=== PATIENT | male | born 1975 | race Caucasian/White ===

== ENCOUNTER 2021-09-24 11:08 | Outpatient (REF) | payer MEDICARE, MEDICAID, SELFPAY ==
[2021-09-24 12:20] LABS: Hemoglobin 14.4 g/dl (14.0-18.0); Mean Corpuscular HGB Conc 32.7 g/dl (31.0-36.0); Mean Corpuscular Hemoglobin 29.6 pg (27.0-33.0); Mean Corpuscular Volume 90.5 fL (80.0-98.0); Mean Platelet Volume 10.3 fL (9.4-12.4); Platelet Count 313 X10*3/uL (160-400); Red Blood Count 4.86 X10*6/uL (4.60-5.80); Red Cell Distribution Width 12.5 % (11.0-16.0); White Blood Count 4.7 X10*3/uL (4.8-10.8)
[2021-09-24 12:57] LABS: Alanine Aminotransferase 20 U/L (0-40); Albumin Level 4.6 g/dL (3.5-5.0); Alkaline Phosphatase 55 U/L (39-117); Anion Gap 12 (12-20); Aspartate Amino Transferase 22 U/L (5-37); Bilirubin Direct < 0.2 mg/dL (0.0-0.5); Bilirubin Total 0.3 mg/dL (0.0-1.0); Blood Urea Nitrogen 11 mg/dL (9-16); Calcium 10.1 mg/dL (8.4-10.2); Carbon Dioxide 27 mmol/L (22-29); Chloride 104 mmol/L (96-108); Cholesterol 202 mg/dL; Estimated Glomerular Filt Rate > 60; Glucose Random 84 mg/dL (60-115); HDL Cholesterol 60 mg/dL; LDL Cholesterol Calculated 126 mg/dl; Potassium 4.4 mmol/L (3.3-5.1); Sodium 139 mmol/L (135-145); Total Protein 7.5 g/dL (6.5-8.0); Triglycerides 81 mg/dL
[2021-09-24 13:18] LABS: TSH reflex Free T4 2.88 uIU/mL (0.32-4.0)
[2021-09-24 13:50] LABS: Appearance Urine CLEAR; Color Urine YELLOW; Glucose Urine UA NEG (NEG); Leukocyte Esterase Urine NEG (NEG); Nitrite Urine NEG (NEG); Specific Gravity - Urine <= 1.005 (1.005-1.025); UACC Culture Trigger NO; Urine Blood TRACE (NEG); Urine Ketones NEG (NEG); Urine Protein NEG (NEG-TRACE)
[2021-09-24 14:14] LABS: RBC Urine 0-2 /HPF (0); WBC Urine 0 /HPF (0-4)
[2021-09-24 18:15] LABS: CT PCR NOT DETECTED (Not Detect.); NG PCR NOT DETECTED (Not Detect.)
[2021-09-25 03:54] LABS: Syphilis Screen Nonreactive (Nonreactive)
[2021-09-25 04:23] LABS: HBS Num1 301.85 mIU/mL (0-7.99); ~Hepatitis B Surface Antibody REACTIVE (Nonreactive)
[2021-09-25 04:28] LABS: ~HepC Num1 0.09 S/CO (0.00-0.79); ~Hepatitis C Antibody Nonreactive (Nonreactive)
[2021-09-25 04:36] LABS: HBsAGNum1 0.22 S/CO (0.00-0.99); HIV AB/AG Nonreactive (Nonreactive); HIV Num 1 0.07 S/CO (0.00-0.99); Hepatitis B Surface Antigen Negative (Negative)
== END 2021-09-24 11:09 | disposition home or self-care (01) ==
LOC: HO.LAB 11:08
PROVIDERS: PCP Internal Medicine Geriatric Medicine; Visit Provider Internal Medicine Geriatric Medicine
DX: F98.8 Other specified behavioral and emotional disorders with onset usually occurring in childhood and adolescence (principal); H35.52 Pigmentary retinal dystrophy; H54.8 Legal blindness, as defined in USA; Z11.3 Encounter for screening for infections with a predominantly sexual mode of transmission; Z13.1 Encounter for screening for diabetes mellitus; Z13.220 Encounter for screening for lipoid disorders
CPT/HCPCS: 80048; 80061; 80076; 81001; 84443; 85027; 86706; 86780; 86803; 87340; 87389; 87491; 87591

== ENCOUNTER 2023-07-02 09:49 | Outpatient (AMB) | payer MEDICARE, MEDICAID, SELFPAY ==
--- NOTE | 2023-07-02 09:52 | A.OFFVIS_ITS ---
Intake Intake Visit Reasons: Vasectomy consult Intake Note: NEW Patient presents today to established treatment for Vasectomy Consult: Meds- None Allergies to Antibiotic- No Known Allergies Blood Thinner- None Barback Required: No Accompanied by: Self / Same As Patient Allergies tea tree [TEA TREE] Allergy (Unknown, Verified 07/02/23 09:56) RASH HPI HPI Comments History of Present Illness Details Wade is a very pleasant male. He is a patient of Dr Luque. He is seen for the following urologic condition - anxiety about health - Vasectomy evaluation Vasectomy evaluation The patient presents for vasectomy consultation. He is currently He has fathered - 0 child, with a single partner. The youngest child is - . His partner is aware and permissive for a vasectomy Current form of control is pullout method. The vasectomy may be complicated due to a history of no complicating issues, inguinal hernia repair, orchidopexy, history of orchitis, orchiectomy. Patient education has been provided via AUA video, via printed information, risks of failure, recovery time, bruising and potential pain syndrome have been stressed Discussion today focused on the presence of vasectomy and the risks, benefits and alternatives that are available. Vasectomy as intended as a permanent form of control. Printed information and literature was provided to the jerod ent. Overall there is a one in 2500 failure rate. This can occur at any time after vasectomy. Risks were discussed highlighting hematoma, spermatocele, epididymal congestion, development of sperm antibodies, and development of chronic pain estimated between 1-5%. The procedure was reviewed in detail. Anatomical diagrams of the male genitalia were used to explain the location of the vas deferens. The vas deferens will be transected, the proximal end will be cauterized, a metal clip would be applied to separate the 2 vas deferens ends. It was explained the procedure will be done in the office and takes approximately 10-15 minutes. Less common problems that arise with vasectomy include hematoma, bleeding, allergic reaction to anesthetic, epididymal infection, epididymal congestion, scrotal discomfort, spermatic leak, spermatic granuloma and the possibility of antisperm antibodies. He understands these risks and wishes to proceed. Consent was signed at the office today. He also understands that it takes 12 weeks for sperm to fully clear the system. He will need to provide a semen sample at 12 weeks and if this is not clear a 2nd sample at 16 weeks. Medical clearance to stop using protection will only be provided if he satisfies published criteria for sperm clearance. [facility] Surgical History (Updated 07/02/23 @ 10:10 by PEDRO LUIS Kim) No pertinent past surgical history Social History (Updated 07/02/23 @ 10:11 by PEDRO LUIS Kim) Alcohol intake: current Alcohol intake frequency: a few times a week Patient Tobacco Use Status: Current everyday Tobacco user Tobacco use type: Cigarette Cigarettes Per Day: 1 Review of Systems Const Denies chills and Denies fever(s) Card Reports no additional complaints and Denies syncope Resp Denies cough GI Denies abdominal pain and Denies heartburn Reports as per HPI and Denies change in libido Neuro Denies syncope Psych Denies change in libido Endo Denies change in libido Physical Exam Const General: cooperative, healthy appearing, comfortable and no acute distress Orientation/consciousness: patient oriented x3 HEENT Face and sinus: Yes normal facial exam Mouth: moist mucous membranes Neck Neck: Yes normal visual inspection, Yes full ROM and Yes trachea midline Chest Chest palpation & inspection: normal inspection of the chest Resp Effort & Inspection: normal respiratory effort, able to speak in complete sentences and no respiratory distress GI Inspection: Yes normal to inspection Back/Spine/Pelvis Cervical Spine: normal cervical lordosis Thoracic/Lumbar Spine: thoracic and lumbar spine normal to inspection Skin General skin exam: no rashes or lesions noted Neuro General: patient oriented x3, gait normal, tone normal and moves all extremities Extrem General: Yes normal to inspection and Yes capillary refill normal Assessment & Plan Assessment & Plan (1) Anxiety about health: Code(s): R45.89 - Other symptoms and signs involving emotional state Plan Vasectomy Medications: New acetaminophen-codeine 300-30 mg Taken each night after vasectomy to help sleep if needed 1 tab PO Q8H 3 days 9 tabs 0RF R45.89 - Other symptoms and signs involving emotional state diazepam (Valium) take one tab when arrive for procedure 2 mg PO DAILY 2 tabs 0RF anxiety R45 .89 - Other symptoms and signs involving emotional state Patient Instructions: Imaging studies, laboratory and physical exam results were discussed and reviewed in detail. No major barriers to patient understanding were identified. An opportunity to ask questions regarding the treatment plan was provided. All questions were answered. The patient expressed understanding and agreement with the above treatment plan. The patient is aware they should contact our office by phone for worsening of their current condition or the appearance of new urologic symptoms. Compliance is encouraged with any medications and followup testing that is ordered. It is a privilege to participate in the urologic care of your patient. If you have any questions or concerns regarding treatment for the above conditions, or other urologic issues, please do not hesitate to contact me. The office telephone contact is [phone]. This note is constructed using voice recognition software. While every effort has been made to ensure accuracy surface hydrologist errors may have been included. Yours sincerely, Dr Silvano Vital MD, [facility] - Urology Providers of Expert, Compassionate Care for the Genitourinary System Coding Level of Care Code New Pt Level 4 (04040) Diagnoses Anxiety about health R45.89
== END 2023-07-02 10:47 | disposition home or self-care (01) ==
PROVIDERS: PCP Internal Medicine Geriatric Medicine; Visit Provider Urology
DX: R45.89 Other symptoms and signs involving emotional state (principal)
CPT/HCPCS: 99204

== ENCOUNTER → 2023-07-02 09:49 | Outpatient (BNVA) | payer MEDICARE, MEDICAID, SELFPAY | PROVIDERS: PCP Internal Medicine Geriatric Medicine; Visit Provider Urology | DX: Z01.818 Encounter for other preprocedural examination (principal); R45.89 Other symptoms and signs involving emotional state | CPT/HCPCS: 99202 ==

== ENCOUNTER 2023-12-11 15:26 | Outpatient (REF) | payer MEDICAID, SELFPAY ==
[2023-12-11 16:39] LABS: MANUAL DIFF FLAG NO
[2023-12-11 18:24] LABS: Basophils Absolute Auto 0.1 X10*3/uL (0.0-0.2); Eosinophils Absolute Auto 0.2 X10*3/uL (0.0-0.4); Eosinophils Percent Auto 2.2 % (0-4); Hematocrit 42.3 % (42.0-52.0); Imm Gran Abs Auto 0.02 X10*3/uL (0.00-0.03); Imm Gran Pct Auto 0.3 % (0.0-0.4); Lymphocytes Absolute Auto 1.7 X10*3/uL (1.2-4.9); Lymphocytes Percent Auto 21.6 % (20-40); Mean Corpuscular HGB Conc 33.1 g/dl (31.0-36.0); Mean Corpuscular Hemoglobin 29.8 pg (27.0-33.0); Mean Platelet Volume 10.3 fL (9.4-12.4); Monocytes Absolute Auto 0.6 X10*3/uL (0.1-1.2); Monocytes Percent Auto 7.8 % (2-11); Neutrophils Absolute Auto 5.3 x10*3/uL (2.0-8.3); Neutrophils Percent Auto 67.1 % (45-73); Platelet Count 323 X10*3/uL (160-400); Red Cell Distribution Width 12.9 % (11.0-16.0); White Blood Count 7.9 X10*3/uL (4.8-10.8)
[2023-12-11 18:37] LABS: Alanine Aminotransferase 13 U/L (0-40); Albumin Level 4.5 g/dL (3.5-5.0); Alkaline Phosphatase 57 U/L (39-117); Anion Gap 13 (12-20); Aspartate Amino Transferase 16 U/L (5-37); Bilirubin Total 0.3 mg/dL (0.0-1.0); Blood Urea Nitrogen 14 mg/dL (9-16); Calcium 9.9 mg/dL (8.4-10.2); Carbon Dioxide 28 mmol/L (22-29); Chloride 106 mmol/L (96-108); Estimated Glomerular Filt Rate > 60; Glucose Random 67 mg/dL (60-115); Potassium 3.9 mmol/L (3.3-5.1); Sodium 143 mmol/L (135-145); Total Protein 7.7 g/dL (6.5-8.0)
[2023-12-12 14:45] LABS: H Pylori Breath Test Negative (Negative)
== END 2023-12-11 15:27 | disposition home or self-care (01) ==
LOC: HO.LAB 15:26
PROVIDERS: PCP Internal Medicine Geriatric Medicine; Visit Provider Nurse Practitioner
DX: Z01.818 Encounter for other preprocedural examination (principal)
CPT/HCPCS: 36415; 80053; 83013; 85025; 99212

== ENCOUNTER 2023-12-11 15:26 | Outpatient (AMB) | payer MEDICAID, SELFPAY ==
--- NOTE | 2023-12-11 15:28 | MHC.OFFVIS ---
Vital Signs 12/11/23 15:31 Height 5 ft 10 in Weight 147 lb 11.355 oz BMI 21.2 BP 109/71 Blood Pressure Location Lt brachial Position Sitting Pulse 74 Intake Visit Reasons: Colonoscopy Screening Intake Note: Wade presents to in office visit today as a new patient for colonoscopy screening. CC: Patient reports internal hemorrhoids with occasional flare ups and bleeding. He c/o a very bad acid reflux and heartburn. Mobile Architect Required: No Accompanied by: Self / Same As Patient Allergies No Known Drug Allergies Allergy (Unknown, Verified 12/11/23 15:29) none tea tree [TEA TREE] Allergy (Unknown, Verified 12/11/23 15:29) RASH HPI HPI Colonoscopy Screening: Details: 48-year-old male here for preprocedural meeting to discuss a screening colonoscopy. He is referred by [facility] Rudy Dodge Legally blind Smoker - quit 6 mos ADHD IH GERD * SURGICAL HISTORY Cataract surgery Peritonsillar abscess wisdon teeth removed * ALLERGIES: NKDA * [employer] LABS: NONE IN OUR SYSTEM TODAY'S VISIT This is his first colonoscopy. He has been having RB on the TT and at times filling the toilet bowel red. He tries to manage this with diet and OTC prep H. he has a vegetarian. He is relatively naive to anesthesia and sedation. No ID problems He denies any cardiac or respiratory problems. There is no known FHX of crc or polyps. His paternal grandmother had stomach cancer. [facility] Medical History (Updated 12/11/23 @ 16:48 by BETY Perez) Peritonsillar abscess Surgical History No pertinent past surgical history Family History (Updated 12/11/23 @ 15:40 by GERA Tyler) Mother Metastatic malignant neoplasm to breast Paternal Grandmother Stomach cancer Social History (Updated 12/11/23 @ 15:39 by GERA Tyler) Alcohol intake: current Alcohol intake frequency: a few times a week Patient Tobacco Use Status: Former Tobacco user Tobacco use type: Cigarette Cigarettes Per Day: 1 Substance Use Type: Marijuana Review of Systems Const Denies fatigue, Denies fever(s), Denies night sweats, Denies poor appetite and Denies weight loss Eyes Details: glasses Reports requires corrective lenses ENT Reports Normal hearing present, Denies dental pain, Denies dysphagia, Denies hearing loss, Denies mouth pain, Denies odynophagia, Denies throat swelling, Denies tongue swelling and Reports other (Dentition adequate) Card Reports no additional complaints Resp Reports no additional complaints GI Details: Denies abdominal pain, Denies melena, Denies bloating, Reports hematochezia, Denies constipation, Denies GI cramping, Denies dysphagia, Denies excessive flatus, Denies early satiety, Reports heartburn, Denies diarrhea, Denies nausea, Denies odynophagia, Denies vomiting and Denies hematemesis Skin/Breast Denies pruritus, Denies lesions, Denies rash and Denies jaundice Neuro Reports Normal hearing present and Denies Abnormal speech present Endo Denies fatigue Aller/Immun Denies throat swelling and Denies tongue swelling Physical Exam Vital Signs: Last Vital Signs Pulse 74 12/11/23 15:31 BP 109/71 12/11/23 15:31 BMI result Body Mass Index 21.2 Const General: cooperative, no acute distress, well developed and well groomed Nutritional Appearance: average body habitus and well nourished Orientation/consciousness: oriented to person, oriented to place and oriented to time Limitations: No language barrier and other limitations (legally blind) HEENT Head: Yes normocephalic and Yes atraumatic Eyes General: appearance normal, both eyes and all related structures Pupils: Equal, round and reactive pupils present Neck Neck: Yes normal visual inspection and Yes no lymphadenopathy Thyroid: Thyroid normal Resp Effort & Inspection: normal respiratory effort and able to speak in complete sentences Auscultation: clear to auscultation bilaterally Cardio Rate: regular rate Rhythm: regular rhythm Heart sounds: Normal, physiologic split S2 sound present Peripheral pulses: radial pulses present and posterior tibial pulses present GI Inspection: No distended and No Abdominal panniculus present Palpation (GI): Soft to palpation, nontender, no guarding, not rigid and No hepatosplenomegaly present Percussion: Yes normal to percussion Auscultation: normal bowel sounds Rectal Exam - Male: Yes deferred Skin General skin exam: no rashes or lesions noted, turgor normal, skin not dry, no jaundice, No spider nevi and no striae Rashes: no rashes Nails: normal Neuro General: oriented to person, oriented to place and oriented to time Cranial nerves: Yes Equal, round and reactive pupils present and Yes Normal hearing present Speech: No Abnormal speech present Extrem General: Yes normal to inspection, No clubbing, No cyanosis and No edema Psych Appearance: grossly normal and well kempt Mental Status: mental status grossly normal Speech and movement: Normal speech and movement present Affect: normal affect Attitude: cooperative Thought process: Normal thought process present and not confabulating Thought content: Normal thought content present Insight: Fair insight present (Psych) Judgement: Fair judgement present (Psych) Assessment & Plan Assessment & Plan (1) Pre-op examination: Code(s): Z01.818 - Encounter for other preprocedural examination Category: Medical (2) GERD (gastroesophageal reflux disease): Code(s): K21.9 - Gastro-esophageal reflux disease without esophagitis Category: Medical (3) Rectal bleeding: Code(s): K62.5 - Hemorrhage of anus and rectum Category: Medical Plan This is his first colonoscopy. He has been having RB on the TT and at times filling the toilet bowel red. He tries to manage this with diet and OTC prep H. he has a vegetarian. He is relatively naive to anesthesia and sedation. No ID problems He denies any cardiac or respiratory problems. There is no known FHX of crc or polyps. His paternal grandmother had stomach cancer. Orders: Orders Comprehensive Met. Panel Today Z01.818 - Encounter for other preprocedural examination Colonoscopy - GI Use Only Today Z01.818 - Encounter for other preprocedural examination H Pylori Breath Test Today Complete Blood Count Auto Diff Today Z01.818 - Encounter for other preprocedural examination Medications: New peg 3350-electrolytes 236-22.74-6.74 -5.86 gram (Golytely) until fecal effluent is clear; do not exceed a total volume of 2,000 mL 240 mL PO Q10M 1 day 4,000 mL 0RF Z12.11 - Encounter for screening for malignant neoplasm of colon bisacodyl (Dulcolax (bisacodyl)) 10 mg (2 x 5 mg) PO BEDTIME 2 days 4 tabs 0RF famotidine (Pepcid) 40 mg PO DAILY PRN 30 tabs 6RF heartburn K21.9 - Gastro-esophageal reflux disease without esophagitis Coding Level of Care Code New Pt Level 3 (65074) Diagnoses Pre-op examination Z01.818 GERD (gastroesophageal reflux disease) K21.9 Rectal bleeding K62.5
[2023-12-11 15:31] VITALS: BP 109/71; PULSE 74; BMI 21.2
== END 2023-12-11 16:24 | disposition home or self-care (01) ==
PROVIDERS: PCP Internal Medicine Geriatric Medicine; Visit Provider Nurse Practitioner
DX: Z01.818 Encounter for other preprocedural examination (principal); K21.9 Gastro-esophageal reflux disease without esophagitis; K62.5 Hemorrhage of anus and rectum
CPT/HCPCS: 99203

== ENCOUNTER 2024-04-11 10:47 | Day surgery (SDC) | payer MEDICAID, SELFPAY ==
--- NOTE | 2024-04-08 10:41 | HO.ANESPROP2 ---
Documented by User: Christine Wilkerson NP 04/08/24 10:42 HPI - Anesthesia Eval Consult details Narrative: 48yo M for Colonoscopy PMFSH Active Problems Active Problems: All Active Problems Rectal bleeding (Acute) Hemorrhoids (Acute) GERD (gastroesophageal reflux disease) (Acute) Pre-op examination (Acute) Legally blind (Acute) Smoker (Acute) ADHD (Acute) Anxiety about health (Acute) Past Medical History Medical History (Updated 04/11/24 @ 11:58 by Sonia Flores RN) Legally blind Bilateral cataracts Peritonsillar abscess Family History Family History (System 02/04/24 @ 13:14 by Zoe Styles CNA) Mother Metastatic malignant neoplasm to breast Paternal Grandmother Stomach cancer Surgical History Surgical History (System 02/04/24 @ 13:14 by Zoe Styles CNA) Hx of cataract surgery History of wisdom tooth extraction Social History Social History (System 02/04/24 @ 13:14 by Zoe Styles CNA) Alcohol intake: current Alcohol intake frequency: a few times a week Patient Tobacco Use Status: Former Tobacco user Tobacco use type: Cigarette Cigarettes Per Day: 1 Use of substances other than those prescribed or required for medical reasons: Yes Substance Use Type: Marijuana Are you DNR?: No Advance Directives: No Advance Directives Information Provided: Yes Advance Directives on File: No Recently lost weight without trying: No Meds Allergies Allergy/AdvReac Type Severity Reaction Status Date / Time tea tree [TEA TREE] Allergy Unknown RASH Verified 02/04/24 13:14 almond Allergy Anaphylaxis Verified 04/11/24 11:59 hoyt Allergy Anaphylaxis Verified 04/11/24 11:59 Home Medications ?Medication ?Instructions ?Recorded ?Confirmed ?Last Taken ?Type loratadine-pseudoephedrine ER 10 1 tab PO DAILY 12/11/23 Unknown History mg-240 mg tablet,extended [id number] (Claritin-D 24 Hour) saw palmetto 160 mg capsule 320 mg PO DAILY 12/11/23 Unknown History methylphenidate HCl 10 mg 10 mg PO BID 04/11/24 04/11/24 Unknown History tablet,extended release Assessment and Plan Assessment Anesthesia Assessment: Chart Reviewed Documented by User: Renetta Vicente MD 04/11/24 13:26 [facility] Past Medical History Medical History (Updated 04/11/24 @ 11:58 by Sonia Flores RN) Legally blind Bilateral cataracts Peritonsillar abscess Family History Family History (System 02/04/24 @ 13:14 by Zoe Styles CNA) Mother Metastatic malignant neoplasm to breast Paternal Grandmother Stomach cancer Family history of problems with anesthesia: No Surgical History Surgical History (System 02/04/24 @ 13:14 by Zoe Styles CNA) Hx of cataract surgery History of wisdom tooth extraction History of Problems with Anesthesia: No Social History Social History (System 02/04/24 @ 13:14 by Zoe Styles CNA) Alcohol intake: current Alcohol intake frequency: a few times a week Patient Tobacco Use Status: Former Tobacco user Tobacco use type: Cigarette Cigarettes Per Day: 1 Use of substances other than those prescribed or required for medical reasons: Yes Substance Use Type: Marijuana Are you DNR?: No Advance Directives: No Advance Directives Information Provided: Yes Advance Directives on File: No Recently lost weight without trying: No Meds Allergies Allergy/AdvReac Type Severity Reaction Status Date / Time tea tree [TEA TREE] Allergy Unknown RASH Verified 02/04/24 13:14 almond Allergy Anaphylaxis Verified 04/11/24 11:59 hoyt Allergy Anaphylaxis Verified 04/11/24 11:59 Home Medications ?Medication ?Instructions ?Recorded ?Confirmed ?Last Taken ?Type loratadine-pseudoephedrine ER 10 1 tab PO DAILY 12/11/23 Unknown History mg-240 mg tablet,extended [id number] (Claritin-D 24 Hour) saw palmetto 160 mg capsule 320 mg PO DAILY 12/11/23 Unknown History methylphenidate HCl 10 mg 10 mg PO BID 04/11/24 04/11/24 Unknown History tablet,extended release Exam Airway Mallampati Class: II TM Dist: >3cm Assessment and Plan Assessment Anesthesia Assessment: Anesthesia Plan Discussed Final Anesthetic Review Family History of Problems with Anesthesia: No History of Problems with Anesthesia: No NPO: Yes ASA Class: II Final Preanesthetic Review: No Changes in Pt Med Stat, Meds/Allgs Chart Reviewed, Consent Obtained/Reviewed and Anes Risks/Benef Reviewed Patient Risk: Low Procedure Risk: Low Anesthetic Plan Anesthetic Plan: TIVA Disposition: Standard PACU
[2024-04-11 12:02] VITALS: BMI 21.0
[2024-04-11 12:09] VITALS: BP 116/73; PULSE 66; RESP 16; TEMP 36.6; O2SAT 100
[2024-04-11] MEDS: Lactated Ringers 1,000 ML 100 ML IVCONT (12:22)
--- NOTE | 2024-04-11 12:25 | MHC.SHP ---
Pre-Procedural Eval Section A - 24 Hr Update-Section A only Date of Service: 04/11/24 The patient is an INPATIENT: No The patient has been examined within 24 hours of the surgical procedure. The History & Physical has been completed within 30 days and I have reviewed it.: No Section B - Complete if H&P > 30 days Chief Complaint: Screening, rectal bleeding Relevant Family History (Specify if Yes): No Relevant Social History: Tobacco Use (Former smoker) Present Medications: see Short Stay Collaborative assessment Medical History: Significant History (GERD, ADHD, legally blind) History of Previous Operations: Relevant previous surgery/procedure and date(s) (Status post cataract surgery,) Allergies: Allergies Allergy/AdvReac Type Severity Reaction Status Date / Time tea tree [TEA TREE] Allergy Unknown RASH Verified 02/04/24 13:14 almond Allergy Anaphylaxis Verified 04/11/24 11:59 hoyt Allergy Anaphylaxis Verified 04/11/24 11:59 Review of Systems Sugical H&P ROS: Negative: Constitution, Cardiovascular and Respiratory and Yes, Specify: Gastrointestinal (Rectal bleeding) Exam Surgical H&P Exam: Normal: Heart, Normal: Lungs, Normal: Extremities and Normal: Abdomen Plan Diagnosis/Plan: Unchanged I have reviewed the history and physical and performed a pertinent physical examination on my patient. No changes have occurred unless specified. Time Spent With Patient Time: Total time managing care of this patient today ____ minutes.
--- NOTE | 2024-04-11 13:23 | P.OPN-COLO_ITS ---
Colonoscopy Operative Note Operative Note Date of Service: 04/11/24 Narrative: COLONOSCOPY TILL CECUM WITH BIOPSIES AND SNARE POLYPECTOMY Pre-op diagnosis: Colon cancer screening (1st Colonoscopy). Post-op diagnosis:? Colon polyps, Diverticulosis, hemorrhoids Endoscopist:? Logan William MD Anesthesia:?MAC Consent: Indications for the procedure and potential complications of bleeding, perforation, reaction to medications and missed diagnosis were discussed with the patient and informed consent was obtained. Instrument: Olympus CF H 190 L variable stiffness adult colonoscope Monitoring: Vital signs and clinical assessment, intermittent blood pressure monitoring, continuous EKG monitoring, Pulse oximetry and Carbon Dioxide monitoring were done throughout the procedure. Please see anesthesia flowsheet. Colon withdrawl time was 15 minutes. Procedure: The patient was placed in the left lateral decubitis position and pre-procedure medications were administered. After a digital rectal examination of the ano-rectum, the video colonoscope was inserted into the rectum and advanced through the colon to the cecum. The colonoscope was slowly withdrawn in a retrograde panoramic fashion and the colon mucosa was carefully examined including a retroflexed view of the rectum. Findings and interventions are described below. Procedure Difficulty: without difficulty Findings: Terminal Ileum: Not evaluated Cecum: Edematous folds around the appendicular orifice - biopsies were obtained Ascending Colon: Normal Transverse Colon: Two 7-8 mm sessile polyps - removed with a cold snare Descending Colon: Moderate diverticulosis Sigmoid Colon: Moderate diverticulosis Rectum: Normal Ano-rectum: Large internal hemorrhoids - likely source for rectal bleed Colon preparation: Good after some irrigation. [place] Bowel Preparation Scale Right colon; 2 Transverse colon: 2 Left colon; 2 (0 = Unprepared colon segment with mucosa not seen due to solid stool that cannot be cleared. 1 = Portion of mucosa of the colon segment seen, but other areas of the colon segment not well seen due to staining, residual stool and/or opaque liquid. 2 = Minor amount of residual staining, small fragments of stool and/or opaque liquid, but mucosa of colon segment seen well. 3 = Entire mucosa of colon segment seen well with no residual staining, small fragments of stool or opaque liquid) Impression and Post Procedure Diagnosis: Colonoscopy Findings: Two small polyps were removed Moderate diverticulosis seen in the left colon large hemorrhoids on retroflexed exam. Plan: Pt has a FU appointment on 04/19/24 with Tammy Simmons NP. Repeat Colonoscopy in 5 years if polyps are adenomatous and 10 year if polyps are hyperplastic. Above findings were reviewed with the patient and relevant handouts were given and the discharge area. Pt was advised to use Sitz baths and hydrocortisone cream for hemorrhoids - prescription was sent If he continues to have rectal bleeding, he can be referred to surgery for band ligation or hemorrhoidectomy BIOPSIES SHOWED: A. Colon, transverse, polypectomy: Fragments of tubular adenoma; negative for high-grade dysplasia or carcinoma. B. Cecum, biopsy: Mildly active colitis; see comment. Comment: There are some features to suggest incipient chronic injury in the cecum; no dysplasia or granulomata are identified Letter sent to the patient advising repeat colonoscopy in 5 years. Patient was placed on the colonoscopy recall list.
[2024-04-11 13:25] VITALS: BP 85/55; PULSE 70; RESP 14; TEMP 36.2; O2SAT 100
[2024-04-11 13:30] VITALS: BP 98/62; PULSE 66; RESP 15; O2SAT 100
[2024-04-11 13:45] VITALS: BP 109/93; PULSE 71; RESP 16; TEMP 36.3; O2SAT 100
== END 2024-04-11 14:33 | disposition home or self-care (01) ==
PROVIDERS: PCP Internal Medicine Geriatric Medicine; Visit Provider Internal Medicine Gastroenterology
PROC: 0DJD8ZZ Inspection of Lower Intestinal Tract, Via Natural or Artificial Opening Endoscopic (ICD-10-PCS; CPT 45378; principal; 2024-04-11 12:40)
DX: Z12.11 Encounter for screening for malignant neoplasm of colon (principal); D12.3 Benign neoplasm of transverse colon; K63.5 Polyp of colon; K57.30 Diverticulosis of large intestine without perforation or abscess without bleeding; K64.8 Other hemorrhoids; K62.5 Hemorrhage of anus and rectum; K52.9 Noninfective gastroenteritis and colitis, unspecified; K21.9 Gastro-esophageal reflux disease without esophagitis; H54.8 Legal blindness, as defined in USA; F90.9 Attention-deficit hyperactivity disorder, unspecified type; Z79.899 Other long term (current) drug therapy; Z87.891 Personal history of nicotine dependence
CPT/HCPCS: 45385; 45380; 88305; J2704

== ENCOUNTER → 2024-04-11 10:47 | Outpatient (BNV) | payer MEDICAID, SELFPAY | PROVIDERS: PCP Internal Medicine Geriatric Medicine; Visit Provider Internal Medicine Gastroenterology | DX: Z12.11 Encounter for screening for malignant neoplasm of colon (principal); D12.3 Benign neoplasm of transverse colon; K52.9 Noninfective gastroenteritis and colitis, unspecified; K57.90 Diverticulosis of intestine, part unspecified, without perforation or abscess without bleeding; K64.8 Other hemorrhoids | CPT/HCPCS: 45380; 45385 ==

== ENCOUNTER 2024-10-17 08:48 | Outpatient (AMB) | payer OTHER, MEDICAID, SELFPAY ==
--- NOTE | 2024-10-17 09:26 | A.OFFVIS_ITS ---
Intake Visit Reasons: vasectomy consult Intake Note: New patient presents to office today for a Vasectomy Consult Urology Meds- None Allergies to Antibiotic- No Known Allergies Blood Thinner- None Software Release Manager Required: No Accompanied by: Self / Same As Patient Allergies tea tree [TEA TREE] Allergy (Unknown, Verified 10/17/24 09:27) RASH almond Allergy (Verified 10/17/24:27) Anaphylaxis hoyt Allergy (Verified 10/17/24:) Anaphylaxis HPI Comments Details: Kristian is here for vasectomy consultation. He states he has no children. Vasectomy procedure was discussed at length with the patient. He was informed that vasectomy is a safe, permanent, and effective form of control but there are risks involved. It may involve risk of hematoma, procedure failure which is rare, sperm granuloma which may cause mild pain, and congestion which may cause sense of pressure and generally resolves after several weeks. Also d iscussed is the reported post vasectomy pain syndrome with chronic testicular pain which is uncommon <5% The patient was advised that it is necessary to use other types of control methods for > 12 weeks and until we send semen for analysis to make sure there is no more sperm in the semen. [facility] Medical History Legally blind Bilateral cataracts Peritonsillar abscess Surgical History Hx of cataract surgery History of wisdom tooth extraction Family History Mother Metastatic malignant neoplasm to breast Paternal Grandmother Stomach cancer Social History Alcohol intake: current Alcohol intake frequency: a few times a week Patient Tobacco Use Status: Former Tobacco user Tobacco use type: Cigarette Cigarettes Per Day: 1 Substance Use Type: Marijuana Review of Systems Const All systems reviewed & are unremarkable except as noted in HPI and below Reports no additional complaints Eyes Reports no additional complaints ENT Reports no additional complaints Card Reports no additional complaints Resp Reports no additional complaints GI Reports no additional complaints Reports as per HPI Musc Reports no additional complaints Skin/Breast Reports system reviewed and no additional complaints, except as documented Neuro Reports no additional complaints Psych Reports no additional complaints Endo Reports no additional complaints Huan/Lymph Reports no additional complaints Aller/Immun Reports no additional complaints Physical Exam Const General: healthy appearing, no acute distress and well developed Orientation/consciousness: patient oriented x3 HEENT Head: Yes normocephalic and Yes atraumatic Eyes Conjunctivae: conjunctivae normal Neck Neck: Yes normal visual inspection Chest Chest palpation & inspection: normal inspection of the chest Resp Effort & Inspection: normal respiratory effort GI Inspection: Yes normal to inspection Neuro General: patient oriented x3 Psych Appearance: grossly normal Affect: normal affect Assessment & Plan Assessment & Plan (1) Anxiety about health: Code(s): R45.89 - Other symptoms and signs involving emotional state Category: Medical (2) Encounter for vasectomy counseling: Code(s): Z30.09 - Encounter for other general counseling and advice on contraception Category: Medical Plan Plan vasectomy in the office with Dr. Vital under local. Patient Instructions: The patient had an opportunity to ask questions regarding treatment plan. The patient expressed understanding and agreement with the above treatment plan. The patient is aware they should contact our office by phone for worsening of their current condition or the appearance of new symptoms. Compliance is encouraged with any medications and followup testing that is ordered. It is a privilege to be allowed the opportunity to participate in the urologic care of your patient. If you have any questions or concerns regarding treatment for the above conditions please do not hesitate to contact me. The office telephone contact is [phone]. This note is constructed in part using voice recognition software. While every effort has been made to ensure accuracy ham sawyer errors may have been included. Yours sincerely, Ty Birmingham MD Coding Level of Care Code New Pt Level 4 (84992) Diagnoses Anxiety about health R45.89 Encounter for vasectomy counseling Z30.09
--- OUTSIDE RECORDS SUMMARY | 2024-10-17 09:32 | XMS_ITS | Clinical Summary ---
Author Organization [employer] Address [address] [facility] 7t [place] [address] Care Team Providers Care Frame Hand Name Role Phone Name, Tang CLAY Primary Care Provider [phone] Allergies Active Allergy Reactions Criticality Noted Date Comments [place] Oil Anaphylaxis High 04/11/2024 Tam Anaphylaxis High 04/11/2024 Tea Tree Oil Rash Low 02/04/2024 Medications methylphenidate ER (Metadate ER) 10 MG CR tabletIndications :Attention deficit hyperactivity disorder, predominantly inattentive type Take 2 tablets (20 mg) by mouth in the morning AND 1 tablet (10 mg) in the evening. Do all this for 28 days. 84 tablet 09/28/19 25 025 Active methylphenidate ER (Metadate ER) 10 MG CR tabletIndications :Attention deficit hyperactivity disorder, predominantly inattentive type Take 2 tablets (20 mg) by mouth in the morning AND 1 tablet (10 mg) in the evening. Do all this for 28 days. TAKE 1 TABLET BY MOUTH TWICE A DAY. DO NOT CRUSH, CHEW OR SPLIT.. 84 tablet 08/02/19 25 025 Discontinued(Re order (will not trigger notification to Pharmacy)) Active Problems Problem Noted Date Diagnosed Date Smoker 05/03/2024 Rectal bleeding 05/03/2024 Pre-op examination 05/03/2024 GERD (gastroesophageal reflux disease) Anxiety about health 05/03/2024 ADHD 01/21/2023 Hemorrhoids 01/21/2023 Legally blind 01/21/2023 Retinitis pigmentosa 01/21/2023 Encounters Date Type Department Care Team Description 09/28/[address] [facility] MEDICINE [address] [place] [address] Arnav Antunez MA may recalls 09/27/[address] [facility] [place] [place] [address] Tang Luque MD Attention deficit hyperactivity disorder, predominantly inattentive type 08/02/2024 9:00 AM EST Office Visit [address] [address] Tang Luque MD Attention deficit hyperactivity disorder, predominantly inattentive type (Primary Dx); Family planning; Smoker 07/25/[address] [address] Arnav Antunez MA Chart prep 07/22/[address] [address] Tang Luque MD Attention deficit hyperactivity disorder, predominantly inattentive type from Last 3 Months Immunizations Name Administration Dates Next Due Hep B, Adolescent or Pediatric 12/31/2015 Hep B, adult 03/24/2017,03/24/2017,02/02/2016 INFLUENZA VACCINE QUADRIVALE NT RECOMBINANT PRESERVATIVE FREE RIV4 05/07/2019 Influenza injectable quadriv alent preservative free 04/29/2023,05/01/2022,04/21/2021,2019,03/24/2017,03/24/2017 MMR 02/02/2016,12/31/2015 TD (adult), 2 Lf tetanus tox oid, preservative free, adsorbed 10/17/2018 Tdap 03/05/2017,08/21/2008 Family History Medical History Relation Name Comments Breast cancer Mother Retinitis pigmentosa Mother Relation Name Status Comments Mother Social History Tobacco Use Types Packs/Day Years Used Date Smoking Tobacco: Former Cigarettes Smokeless Tobacco: Never Tobacco Cessation:Counseling Given: Not Answered Alcohol Use Standard Drinks/Week Comments Yes 14 (1 standard drink = 0.6 oz pu re alcohol) socially Depression Answer Date Recorded Patient Health Questionnaire-9 Score 5 01/28/2024 Patient Health Questionnaire-9 Score 5 01/28/2024 Last PHQ-9: Questionnaire Data Not on file 0 01/28/2024 Housing Stability Answer Date Recorded What is your housing situation today? I have tejal ivy 01/28/[address] you li ve. Do you have problems with any of the following? None of the above 01/28/2024 Food Insecurity Answer Date Recorded Within the past 12 months, y ou worried that your food would run out before you got money to buy more: Never True 01/28/2024 Within the past 12 months,th e food you bought just didn't last and you didn't have enough money to get more: Never True Transportation Answer Date Recorded In the past 12 months, has l ack of transportation kept you from medical appts, meetings, work or from getting things needed for daily living? No 01/28/2024 Utilities Answer Date Recorded In the past 12 months, has t he electric, gas, oil or water company threatened to shut off services in your home? No 01/28/2024 Depression Answer Date Recorded Patient Health Questionnaire-2 Score 2 01/28/2024 Internet Access Answer Date Recorded Internet Access Q1 No 03/14/2024 Internet Access Q2 I do not want or need it 08/2023 Sex and Gender Information Value Date Recorded Sex Assigned at Male 05/12/2022 10:39 AM EDT Legal Sex Male 10:39 AM EDT Gender Identity Male 05/12/2022 10:39 AM EDT Sexual Orientation Choose not to disclose 2021 10:39 AM EDT Last Filed Vital Signs Vital Sign Reading Time Taken Comments Blood Pressure 133/85 08/02/2024 9:06 AM EST Pulse 104 08/02/2024 9:06 AM EST Temperature 36.1 ??C (96.9 ??F) 08/02/2024 9:06 AM ES T Respiratory Rate 26 08/02/2024 9:06 AM EST Oxygen Saturation 97% 08/02/2024 9:06 AM EST Inhaled Oxygen Concentration - - Weight 61.5 kg (135 lb 9.6 oz) 08/02/2024 9:06 A M EST Height 172.7 cm (5' 8 ) 08/02/2024 9:06 AM EST Body Mass Index 20.62 08/02/2024 9:06 AM EST Plan of Treatment Health Maintenance Due Date Last Done Comments CT Colonography 1977 FIT DNA/Cologuard 1977 FIT 1977 FOBT 1977 Lipid Panel 1977 Sigmoidoscopy 1977 Family Planning (PISQ) 1992 Hepatitis B Vaccines (3 of 3 - 19+ 3-dose series) 05/19/2017 03/24/2017, 03/24/2017, 02/02/2016, Additional history exists COVID-19 Vaccine ( season) 2024 04/29/2023, 05/01/2022, 06/29/2021, Additional history exists Influenza Vaccine (#1) 2024 , 05/01/2022, 04/21/2021, Additional history exists Alcohol/Substance Use Screening 01/27/2025 01/28/2024 Depression Screening 01/27/2025 01/28/2024, 01/28/20 24 SDOH Screening 01/27/2025 01/28/2024 Tobacco Screening 08/02/2025 08/02/2024 Zoster Vaccines (1 of 2) 11/24/2027 DTaP/Tdap/Td Vaccines (4 - Td or Tdap) 10/17/2028 10/17/2018, 03/05/2017, 08/21/2008 Colonoscopy 04/11/2029 04/11/2024 Colorectal Cancer Screening 04/11/2029 RSV Patients and Patients Aged 60 years or older (1 - 1-dose 75+ series) 2052 HIV Screening Completed 09/24/2021 Hepatitis C Screening Completed 09/24/2021 HIB Vaccines Aged Out No longer eligi ble based on patient's age to complete this topic HPV Vaccines Aged Out No longer eligi ble based on patient's age to complete this topic Hepatitis A Vaccines Aged Out No long er eligible based on patient's age to complete this topic IPV Vaccines Aged Out No longer eligi ble based on patient's age to complete this topic Meningococcal Vaccine Aged Out No humera laurie eligible based on patient's age to complete this topic Pneumococcal Vaccine: Pediatrics (0 to 5 Years) and At-Risk Patients (6 to 49) Years) Aged Out No longer eligible based on patient's age to complete this topic RSV under 20 months Aged Out No longe r eligible based on patient's age to complete this topic Rotavirus Vaccines Aged Out No longer eligible based on patient's age to complete this topic Procedures Procedure Name Priority Date/Time Associated Diagnosis Comments COLONOSCOPY Routine 04/11/2024 ALEKSANDRA HISTORICAL HEPATITIS C ANTIBODY RFLX Routine 09/24/2021 11:55 AM EDT ZNATALIA HISTORICAL HEPATITIS B SURFACE ANTIBODY Routine 09/24/2021 11:55 AM EDT from Last 3 Months or Most Recently Relevant to Health Maintenance Results * (ABNORMAL) Colonoscopy (04/11/2024) Colonoscopy Abnormal(A ) Normal 04/11/2024 us Historical Provider HEALTH MAINTENANCE Final Result * HEPATITIS B SURFACE ANTIBODY (09/24/2021 11:55 AM EDT) Hepatitis B Surface Antibody REACTIVE Nonreactive [facility] Comment:REACTIVE: > 11.99 mI U/mL HIV AB/AG Nonreactive Nonreactive [facility] Comment: HIV-1 p24 Ag and/or HIV-1/HIV-2 Ab not detected. ?? A test result that is nonreactive does not exclude the possibility of exposure to or infection with HIV-1 and/or HIV-2. Nonreactive results in this assay for individuals with prior exposure to HIV-1 and/or HIV-2 may be due to antigen and antibody levels that are below the limit of detection of this assay. ?? [facility] HIV Ag/Ab Combo assay result and supplemental assay results should be interpreted in conjunction with the patient's clinical presentation, history and other laboratory results. ??If the results are inconsistent with clinical evidence, additional testing is suggested to confirm the result. Hepatitis B Surface Antigen Negative Negative [facility] 09/24/2021 11:5 5 AM EDT us Tang Name HISTORICAL/NON ORDERABLE LABS Fi nal Result [facility] [address] * HEPATITIS C ANTIBODY RFLX (09/24/2021 11:55 AM EDT) Hepatitis C Antibody Nonreactive Nonreactive [facility] Comment: Antibodies to HCV not detected; does not exclude early acute HCV infection. 09/24/2021 11:5 5 AM EDT us Tang Luque MD HISTORICAL/NON ORDERABLE LABS Fi nal Result [facility] [address] from Last 3 Months or Most Recently Relevant to Health Maintenance Insurance , [address] [place] [address] Care Teams Frame Hand Relationship Specialty Start Date End Date Name, MD Tang [address] [place] [address] PCP - General Family Medicine 03/24/22
--- OUTSIDE RECORDS SUMMARY | 2024-10-17 09:32 | XMS_ITS | Encounter Summary ---
Author Organization [employer] Address [address] 7[address] [place] [address] Care Team Providers Care Spanish Interpreter Name Role Phone Name, Tang CLAY Primary Care Provider [phone] Encounter Details Date Type Department Care Team (Late st Contact Info) Description 04/13/2024 Abstract [facility] MEDICINE [address] [place] [address] Arnav Antunez MA Social History Tobacco Use Types Packs/Day Years Used Date Smoking Tobacco: Former Cigarettes Smokeless Tobacco: Never Alcohol Use Standard Drinks/Week Comments Yes 14 [...] the past 12 months, has t he [employer], gas, oil or water company threatened to [...] not to disclose 2021 10:39 AM EDT documented as of this encounter Plan of Treatment Not on file documented as of this encounter Visit Diagnoses Not on filedocumented in this encounter Additional Health Concerns Assessment Noted Time PHQ-9 Depression Total Score: 5 01/28/20 24 9:20 AM EDT documented as of this encounter Care Teams Spanish Interpreter Relationship Specialty Start Date End Date Name, MD Tang [address] [place] [id number] PCP - General Family Medicine 03/24/22 documented as of this encounter
== END 2024-10-17 09:57 | disposition home or self-care (01) ==
PROVIDERS: PCP Internal Medicine Geriatric Medicine; Visit Provider Urology
DX: R45.89 Other symptoms and signs involving emotional state (principal); Z30.09 Encounter for other general counseling and advice on contraception
CPT/HCPCS: 99204

== ENCOUNTER → 2024-10-17 08:48 | Outpatient (BNVA) | payer OTHER, SELFPAY | PROVIDERS: PCP Internal Medicine Geriatric Medicine; Visit Provider Urology ==

== ENCOUNTER 2024-11-02 08:45 | Outpatient (REF) | payer OTHER, MEDICAID, SELFPAY ==
--- OUTSIDE RECORDS SUMMARY | 2024-11-02 09:15 | XMS_ITS | Encounter Summary ---
Author Organization [employer] Address [address] [facility] [address] [place] [address] Care Team Providers Care Pipe Supervisor Name Role Phone Name, Tang CLAY Primary Care Provider [phone] Encounter Details Date Type Department Care Team (Late st Contact Info) Description 04/13/2024 Abstract [facility] MEDICINE [address] [place] [address] Arnav Antunez MA Social History Tobacco Use [...] the past 12 months, has t he [employer], gas, oil or water company threatened to [...] as of this encounter Plan of Treatment Upcoming Encounters Date Type Department Care Team (Late st Contact Info) Description 01/06/2025 11:00 AM EDT Office Visit [facility] MEDICINE [address] [place] [id number] Name, MD Tang [address] [place] [address] documented as of this encounter Visit Diagnoses Not on filedocumented in this encounter Additional Health Concerns Assessment Noted Time PHQ-9 Depression Total Score: 5 01/28/20 24 9:20 AM EDT documented as of this encounter Care Teams Pipe Supervisor Relationship Specialty Start Date End Date NameTang MD [address] [place] [id number] PCP - General Family Medicine 03/24/22 documented as of this encounter
--- OUTSIDE RECORDS SUMMARY | 2024-11-02 09:15 | XMS_ITS | Encounter Summary ---
Author Organization [employer] Address [address] [facility] 7t [place] [address] Care Team Providers Care Seasonal Recruiter Name Role Phone Name, Tang CLAY Primary Care Provider [phone] Reason for Visit * Reason Onset Date Comments Med Refill 10/31/2024 Encounter Details Date Type Department Care Team ([facility] st Contact Info) Description 10/31/2024 Refill [facility] MEDICINE [address] [place], [place] [phone] Name, MD Tang [address] [place] [address] Attention deficit hyperactivity disorder, predominantly inattentive type Social History Tobacco Use Types Packs/Day Years [...] Description 01/06/2025 11:00 AM EDT Office Visit [facility] MEDICINE [address] [place] [address] NameTang MD [address] [place] [address] documented as of this encounter Visit Diagnoses Diagnosis Attention deficit hyperactivity disorder, predominantly inattentive type documented in this encounter Additional Health Concerns Assessment Noted Time PHQ-9 Depression Total Score: 5 01/28/20 24 9:20 AM EDT documented as of this encounter Care Teams Seasonal Recruiter Relationship Specialty Start Date End Date Tang Luque MD [address] [place] [address] PCP - General Family Medicine 03/24/22 documented as of this encounter
--- OUTSIDE RECORDS SUMMARY | 2024-11-02 09:15 | XMS_ITS | Clinical Summary ---
Author Organization [employer] Address [address] [facility] 7 [place] [address] Care Team Providers Care Drafter Civil Engineering Name Role Phone Name, Tang CLAY Primary Care Provider [phone] Allergies Active Allergy Reactions Criticality Noted Date Comments [place] Oil Anaphylaxis High 04/11/2024 Tam Anaphylaxis High 04/11/2024 Tea Tree Oil Rash Low 02/04/2024 Medications methylphenidate ER (Metadate ER) 10 MG CR tabletIndications :Attention deficit hyperactivity disorder, predominantly inattentive type Take 2 tablets (20 mg) by mouth in the morning AND 1 tablet (10 mg) in the evening. Do all this for 28 days. 84 tablet 11/03/19 25 025 Active methylphenidate ER (Metadate ER) 10 MG CR tabletIndications :Attention deficit hyperactivity disorder, predominantly inattentive type Take 2 tablets (20 mg) by mouth in the morning AND 1 tablet (10 mg) in the evening. Do all this for 28 days. 84 tablet 09/28/19 25 025 Discontinued(Re order (will not trigger notification to Pharmacy)) Active Problems Problem Noted Date Diagnosed Date Smoker 05/03/2024 Rectal bleeding 05/03/2024 Pre-op examination 05/03/2024 GERD (gastroesophageal reflux disease) Anxiety about health 05/03/2024 ADHD 01/21/2023 Hemorrhoids 01/21/2023 Legally blind 01/21/2023 Retinitis pigmentosa 01/21/2023 Encounters Date Type Department Care Team Description 10/31/2024 Refill [facility] MEDICINE [address] [place], [place] [phone] Tang Luque MD Attention deficit hyperactivity disorder, predominantly inattentive type 09/28/2024 Telephone [facility] MEDICINE [address] [place] [address] Arnav Antunez MA may recalls 09/27/2024 Refill [facility] MEDICINE [address] [place] [address] Tang Luque MD Attention deficit hyperactivity disorder, [...] your housing situation today? I have tejal sing 01/28/[address] you li [...] 08/02/2024 9:06 AM EST Plan of Treatment Upcoming Encounters Date Type Department Care Team (Late st Contact Info) Description 01/06/2025 11:00 AM EDT Office Visit [facility] MEDICINE [address] [place] [address] Name, MD Tang [address] [place] [address] Health Maintenance Due Date Last Done Comments [...] 01/27/2025 01/28/2024 Depression Screening 01/27/2025 01/28/2024, 01/28/20 SDOH Screening 01/27/2025 01/28/2024 Tobacco Screening 08/02/2025 [...] Procedure Name Priority Date/Time Associated Diagnosis Comments HM COLONOSCOPY Routine 04/11/2024 ZZZ HISTORICAL HEPATITIS C ANTIBODY RFLX Routine 09/24/2021 11:55 AM EDT ZZZ HISTORICAL HEPATITIS B SURFACE ANTIBODY Routine 09/24/2021 11:55 AM EDT from Last 3 Months or Most Recently Relevant to Health Maintenance Results * (ABNORMAL) Colonoscopy (04/11/2024) [facility] Colonoscopy Abnormal(A ) Normal 04/11/2024 Historical Provider HEALTH MAINTENANCE Final Result * HEPATITIS B SURFACE ANTIBODY (09/24/2021 11:55 AM EDT) [facility] Hepatitis B Surface Antibody REACTIVE Nonreactive [facility] Comment:REACTIVE: > 11.99 mI U/mL HIV AB/AG Nonreactive Nonreactive [facility] Comment: HIV-1 p24 Ag and/or [...] detection of this assay. ?? [facility] HIV Ag/Ab Combo assay result and supplemental assay results should be interpreted in conjunction with the patient's clinical presentation, history and other laboratory results. ??If the results are inconsistent with clinical evidence, additional testing is suggested to confirm the result. Hepatitis B Surface Antigen Negative Negative [facility] 09/24/2021 11:5 5 AM EDT us Tang Luque MD HISTORICAL/NON ORDERABLE LABS Fi nal Result [facility] [address] * HEPATITIS C ANTIBODY RFLX (09/24/2021 11:55 AM EDT) Hepatitis C Antibody Nonreactive Nonreactive [facility] Comment: Antibodies to HCV not detected; does not exclude early acute HCV infection. 09/24/2021 11:5 5 AM EDT us Tang Luque MD HISTORICAL/NON ORDERABLE LABS Fi nal Result [facility] [address] from Last 3 Months or Most Recently Relevant to Health Maintenance Insurance , [address] [place] [address] Care Teams Drafter Civil Engineering Relationship Specialty Start Date End Date Name, MD Tang [address] [place] [address] PCP - General Family Medicine 03/24/22
[2024-11-02 12:04] LABS: Cholesterol 179 mg/dL (<200); HDL Cholesterol 58 mg/dL (>40); LDL Cholesterol Calculated 97 mg/dL (<100); Triglycerides 120 mg/dL (<150)
== END 2024-11-02 08:46 | disposition home or self-care (01) ==
LOC: HO.HHCL 08:45
PROVIDERS: Visit Provider Internal Medicine Geriatric Medicine
DX: Z00.00 Encounter for general adult medical examination without abnormal findings (principal); Z13.220 Encounter for screening for lipoid disorders; Z13.6 Encounter for screening for cardiovascular disorders
CPT/HCPCS: 36415; 80061

== ENCOUNTER 2025-05-19 14:45 | Outpatient (AMB) | payer OTHER, SELFPAY ==
--- NOTE | 2025-05-19 15:17 | A.OFFVIS_ITS ---
Intake Visit Reasons: vasectomy Intake Note: Present for Vasectomy Procedure General Office Dispatcher Required: No Accompanied by: Self / Same As Patient Allergies tea tree (TEA TREE) Allergy (Unknown, Verified 05/19/25 15:17) RASH almond Allergy (Verified 05/19/25 15:17) Anaphylaxis hoyt Allergy (Verified 05/19/25 15:17) Anaphylaxis HPI Comments Details: Kristian is here for vasectomy consultation. He states he has no children. Vasectomy procedure was discussed at length with the patient. He was informed that vasectomy is a safe, permanent, and effective form of control but there are risks involved. It may involve risk of hematoma, procedure failure which is rare, sperm granuloma which may cause mild pain, and congestion which may cause sense of pressure and generally resolves after several weeks. Also discussed is the reported post vasectomy pain syndrome with chronic testicular pain which is uncommon <5% The patient was advised that it is necessary to use other types of control methods for > 12 weeks and until we send semen for analysis to make sure there is no more sperm in the semen. FOR[facility]LY [facility] Medical History Legally blind Bilateral cataracts Peritonsillar abscess Surgical History Hx of cataract surgery History of wisdom tooth extraction Family History Mother Metastatic malignant neoplasm to breast Paternal Grandmother Stomach cancer Social History Alcohol intake: current Alcohol intake frequency: a few times a week Patient Tobacco Use Status: Former Tobacco user Tobacco use type: Cigarette Cigarettes Per Day: 1 Substance Use Type: Marijuana Office Procedures Vasectomy Details: Preoperative diagnosis: Anxiety regarding Postoperative diagnosis: Anxiety regarding unplanned Procedure: Bilateral vasectomy Informed consent had been completed. Preoperative and postoperative instructions were provided to the patient. The patient has transportation home identified at the completion of the procedure. Anti-anxiolytic prescription medication had been taken after consent verification and all questions answered. A limited amount of pain medication was also provided. The penis was elevated using a rubber band that was attached to the patient's shirt. Both vasa were palpated through the skin using a 3 finger technique and the penoscrotal junction was prepped with Betadine. After Betadine application the left vas was elevated using a 3 finger grasping technique. 1% lidocaine was used to create a subdermal bubble. Further anesthetic was then advanced using the 25-gauge needle along the vasa in a proximal fashion. Approximately 2 minutes were allowed to for local anesthetic uptake. Using the sharp spreading instrument the scrotal skin was spread longitudinally in line with the vasa until the subdermal layer had been divided. The vasa was then elevated from the scrotum using a ring clamp. Care was taken to elevate the superior portion of the vasa by rotating the ring clamp in a caudad direction. The battery powered cautery was used to divide the vasal sheath in a longitudinal direction on the exposed vasa and to strip the vasal sheath from the vasa. The sharp spreading instrument was used to further expose the vas within the vasal sheath. A 2nd narrower ring clamp was placed on the exposed vas and used to lift the vas from the vasal sheath. The cautery was used to divide vasal attachments and allow full exposure of a small loop of vasa. The sharp spreading instrument was then used to create a tunnel under the vasa and spread to allow the blood vessels of the vasa to retract from the vasa. A mosquito clamp was placed on the proximal portion of the vas. The battery- powered cautery was used to make a partial division in the proximal vas and then inserted in order to cauterize the proximal end of the vas. This was then cut and allowed to retract into the vasal sheath. The mosquito was then used to twist the vasa 180 degrees creating a fascial interposition as the proximal portion of the vas retracted in the vasal sheath. Using a 4-0 chromic suture the fascial interposition was sutured closed. The distal portion of the vas was then cut in order to obtain a segment of vasa. An open distal vas is preferred for minimizing postprocedure pain. The vasa were allowed to retract back into the scrotum. A small snap was then used to approximate the skin edges and allow hemostasis without placement of a suture. A similar procedure was repeated on the right side. He tolerated the procedure well. Triple antibiotic was applied. A gauze was applied. An ice pack was applied to assist with minimizing swelling. Postoperative instructions were confirmed. He understands the need to continue to use control methods. A semen sample should be brought for inspection under the microscope in 10-12 weeks. CPT 73789 Vasectomy performed by: Silvano Vital Informed consent given: Yes Informed consent signed: Yes Time out checklist: patient, procedure, site marked/identified, positioning of patient, supplies available, allergies confirmed and team agrees on procedure Anesthetic used: other Specimens: vas segments not sent to pathology 72322 - Vasectomy Assessment & Plan Assessment & Plan (1) Anxiety about health: Code(s): R45.89 - Other symptoms and signs involving emotional state Category: Medical Plan Twelve week follow-up tele Coding Level of Care Code Procedure Only Diagnoses Anxiety about health R45.89 CPT Codes Office Procedure - CPT: 55689 - Vasectomy ([id number])
--- OUTSIDE RECORDS SUMMARY | 2025-05-19 16:12 | XMS_ITS | Clinical Summary ---
Author Organization [employer] Address [address] [facility] [address] [place] [address] Care Team Providers Care [employer] Press Plate Setter Name Role Phone Name, Tang CLAY Primary Care Provider [phone] Allergies Active Allergy Reactions Criticality Noted Date Comments [employer] Oil Anaphylaxis High 04/11/2024 Tam Anaphylaxis High 04/11/2024 Tea Tree Oil Rash Low 02/04/2024 Medications nicotine polacrilex (Nicotine Mini) 2 MG lozenge Dissolve 1 lozenge (2 mg) in the mouth if needed for smoking cessation. 100 lozenge 01/07/20 25 Active amphetamine-de xtroamphetamin e (Adderall) 10 MG tablet TAKE 2 TABLETS BY MOUTH IN THE MORNING AND 1 TABLET IN THE AFTERNOON 84 tablet 05/12/20 25 Active amphetamine-de xtroamphetamin e (Adderall) 10 MG tablet TAKE 2 TABLETS BY MOUTH IN THE MORNING AND 1 TABLET IN THE AFTERNOON 84 tablet 04/07/20 25 025 Discontinued(Re order (will not trigger notification to Pharmacy)) Active Problems Problem Noted Date Diagnosed Date Tobacco dependence 05/03/2024 Rectal bleeding 05/03/2024 Pre-op examination 05/03/2024 GERD (gastroesophageal reflux disease) Anxiety about health 05/03/2024 ADHD 01/21/2023 Hemorrhoids 01/21/2023 Legally blind 01/21/2023 Retinitis pigmentosa 01/21/2023 Encounters Date Type Department Care Team Description 05/11/[address] [facility] MEDICINE [address] [place] [address] Deanna Ingram NP 04/07/[address] [facility] MEDICINE [address] [place] [address] NameTang MD 04/04/[address] [facility] CHC MED & PEDS [address] [place] [address] Tang Luque MD DEC RECALL 03/09/[address] [facility] MEDICINE [address] [place] [address] Arnav Antunez MA oct recalls 03/05/[address] [facility] MEDICINE [address] [place] [address] NameTang MD from Last 3 Months Immunizations Immunization Administration Dates Next Due Hep B, Adolescent [...] Types Packs/Day Years Used Date Smoking Tobacco: Every Day Cigarettes Smokeless Tobacco: Never Tobacco Cessation:Ready to Q uit: Not Asked; Counseling Given: Not Answered Alcohol Use Standard Drinks/Week Comments Yes 14 (1 standard drink = 0.6 oz pu re alcohol) socially Depression Answer Date Recorded Patient Health Questionnaire-9 Score 2 01/06/2025 Patient Health Questionnaire-9 Score 2 01/06/2025 Last PHQ-9: Questionnaire Data Not on file 0 01/06/2025 Housing Stability Answer Date Recorded What is [...] Answer Date Recorded Patient Health Questionnaire-2 Score 0 01/06/2025 Internet Access Answer Date Recorded Internet Access [...] Sign Reading Time Taken Comments Blood Pressure 132/72 01/06/2025 11:19 AM EDT Pulse 92 01/06/2025 11:19 AM EDT Temperature 36.9 C (98.4 F) 01/06/2025 11:19 AM EDT Respiratory Rate 18 01/06/2025 11:19 AM EDT Oxygen Saturation 98% 01/06/2025 11:19 AM EDT Inhaled Oxygen Concentration - - Weight 60.3 kg (133 lb) 01/06/2025 11:19 AM EDT Height 170.2 cm (5' 7 ) 01/06/2025 11:19 AM EDT Body Mass Index 20.83 01/06/2025 11:19 AM EDT Plan of Treatment Upcoming Encounters Date Type Department Care Team (Late st Contact Info) Description 06/20/2025 2:45 PM EST Office Visit [facility] MEDICINE [address] [place] [address] Name, MD Tang [address] [place] [address] Health Maintenance Due Date Last Done Comments CT Colonography 1977 FIT DNA/Cologuard 1977 FIT 1977 FOBT 1977 Sigmoidoscopy 1977 Alcohol/Substance Use Screening 1989 Family Planning (PISQ) 1992 Pneumococcal Vaccine: Pediatrics (0 to 5 Years) and At-Risk Patients (6 to 49) Years (1 of 2 - PCV) 1996 Hepatitis B Vaccines (3 of 3 - 19+ 3-dose series) 05/19/2017 03/24/2017, 03/24/2017, 02/02/2016, Additional history exists SDOH Screening 01/27/2025 01/28/2024 Influenza Vaccine (#1) 2025 , 04/29/2023, 05/01/2022, Additional history exists Depression Screening 01/06/2026 01/06/2025, 01/07/20 25 Disability Screening 01/06/2026 01/06/2025 Tobacco Screening 01/06/2026 01/06/2025 Zoster Vaccines (1 of 2) 11/24/2027 DTaP/Tdap/Td Vaccines (4 - Td or Tdap) 10/17/2028 10/17/2018, 03/05/2017, 08/21/2008 Colonoscopy 04/11/2029 04/11/2024 Colorectal Cancer Screening 04/11/2029 Lipid Panel 11/02/2029 11/02/2024 RSV Patients and Patients Aged 60 years or older (1 - 1-dose 75+ series) 2052 HIV Screening Completed 09/24/2021 Hepatitis C Screening Completed 09/24/2021 COVID-19 Vaccine Completed 05/23/2024, , 05/01/2022, Additional history exists HIB Vaccines Aged Out No longer eligi [...] patient's age to complete this topic Meningococcal B Vaccine Aged Out No l onger eligible based on patient's age to complete [...] Procedure Name Priority Date/Time Associated Diagnosis Comments LIPID PANEL, STANDARD Routine 11/02/2024 8:47 AM EDT PE (physical exam), routine Screening for cholesterol level COLONOSCOPY Routine 04/11/2024 ZZZ HISTORICAL HEPATITIS C ANTIBODY RFLX Routine 09/24/2021 11:55 AM EDT ZZZ HISTORICAL HEPATITIS B SURFACE ANTIBODY Routine 09/24/2021 11:55 AM EDT from Last 3 Months or Most Recently Relevant to Health Maintenance Results * Lipid Panel, Standard (11/02/2024 8:47 AM EDT) Triglycerides 120 <150 mg/dL [facility] Comment:Desirable Triglyceri de: less than 150 mg/dLBorderline High Triglyceride 150-199 mg/dLHigh Triglyceride: 200-499 mg/dLVery High Triglyceride: greater than or equal to 5OO mg/dL Cholesterol 179 <200 mg/dL [facility] Comment:Desirable Cholestero l: less than 200 mg/dLBorderline High Cholesterol: 200-239 mg/dLHigh Cholesterol: greater than 239 mg/dL LDL Cholesterol Calculated 97 <100 mg/dL [facility] Comment:Desirable LDL: less than 100 mg/dLNear Optimal/Above Optimal LDL: 110- 129 mg/dLBorderline High LDL: 130-159 mg/dLHigh LDL: 160-189 mg/dLVery High LDL: greater than or equal to 190 mg/dL HDL Cholesterol 58 >40 mg/dL [facility] Comment:Desirable HDL: great er than 40 mg/dL Note: This HDL assay may give artificially low results in patients with liver disease. Blood Venous blood specimen / Unknown 11/02/2024 8:47 AM EDT 11/02/2024 11:27 AM EDT Tang Luque MD LAB BLOOD ORDERABLES Final Resul t [facility] [address] [place] [address] [phone] * (ABNORMAL) Hm Colonoscopy (04/11/2024) Colonoscopy Abnormal(A ) Normal 04/11/2024 Historical Provider HEALTH MAINTENANCE Final Result * HEPATITIS B SURFACE ANTIBODY (09/24/2021 11:55 AM EDT) Pathologist [facility] Hepatitis B Surface Antibody REACTIVE Nonreactive [email or web address] Comment:REACTIVE: > 11.99 mI U/mL HIV AB/AG Nonreactive Nonreactive [facility] Comment: HIV-1 p24 Ag and/or HIV-1/HIV-2 Ab not detected. A test result that is nonreactive does not exclude the possibility of exposure to or infection with HIV-1 and/or HIV-2. Nonreactive results in this assay for individuals with prior exposure to HIV-1 and/or HIV-2 may be due to antigen and antibody levels that are below the limit of detection of this assay. The [employer] HIV Ag/Ab Combo assay result and supplemental assay results should be interpreted in conjunction with the patient's clinical presentation, history and other laboratory results. If the results are inconsistent with clinical evidence, additional testing is suggested to confirm the result. Hepatitis B Surface Antigen Negative Negative [email or web address] 09/24/2021 11:5 5 AM EDT Tang Luque MD HISTORICAL/NON ORDERABLE LABS Fi nal Result [email or web address] [address] * HEPATITIS C ANTIBODY RFLX (09/24/2021 11:55 AM EDT) Pathologist [facility] Hepatitis C Antibody Nonreactive Nonreactive [email or web address] Comment: Antibodies to HCV not detected; does not exclude early acute HCV infection. 09/24/2021 11:5 5 AM EDT us Tang Luque MD HISTORICAL/NON ORDERABLE LABS Fi nal Result [facility] [address] from Last 3 Months or Most Recently Relevant to Health Maintenance Insurance , [address] [place] [address] Care Teams [employer]ographic Press Plate Setter Relationship Specialty Start Date End Date Name, MD Tang [address] [place] [address] PCP - General Family Medicine 03/24/22
--- OUTSIDE RECORDS SUMMARY | 2025-05-19 16:12 | XMS_ITS | Encounter Summary ---
Author Organization [employer] Address [address] [facility] [address] [place] [address] Care Team Providers Care [employer] Assistant Principal Name Role Phone Name, Tang CLAY Primary Care Provider [phone] Encounter Details Date Type Department Care Team (Late st Contact Info) Description 04/13/2024 Abstract [facility]IC[facility] [address] [place] [address] Arnav Antunez [place] Social History Tobacco Use [...] the past 12 months, has t he [employer], gas, oil or water company threatened to [...] Description 06/20/2025 2:45 PM EST Office Visit [facility] [address] [place] [phone] Name, MD Tang [address] [place] [phone] documented as of this encounter Visit Diagnoses Not on filedocumented in this encounter Additional Health Concerns Assessment Noted Time PHQ-9 Depression Total Score: 5 01/28/20 24 9:20 AM EDT documented as of this encounter Care Teams [employer] Assistant Principal Relationship Specialty Start Date End Date Name, MD Tang [address] [place] [id number] PCP - General Family Medicine 03/24/22 documented as of this encounter
== END 2025-05-19 16:10 | disposition home or self-care (01) ==
PROVIDERS: PCP Internal Medicine Geriatric Medicine; Visit Provider Urology
DX: R45.89 Other symptoms and signs involving emotional state (principal); Z30.2 Encounter for sterilization
CPT/HCPCS: 55250

== ENCOUNTER → 2025-05-19 14:45 | Outpatient (BNVA) | payer OTHER, SELFPAY | PROVIDERS: PCP Internal Medicine Geriatric Medicine; Visit Provider Urology | DX: R45.89 Other symptoms and signs involving emotional state (principal) | CPT/HCPCS: 55250 ==